=== PATIENT | female | born 1965 | race Caucasian/White ===

== ENCOUNTER 2017-08-16 07:21 | Inpatient (IN) | payer MEDICAID ==
[~2017-08-16 07:21] MED LIST: Acetaminophen 325 MG Tab PO ONE; Celecoxib 200 MG Cap PO ONE; Gabapentin 300 MG Cap PO ONE; Scopolamine 1.5 MG Transdermal Patch TRDERM PRN; cefOXitin 2 GM Vial ONE
[2017-08-16] MEDS ORDERED: Acetaminophen 500 MG Tab PO ONE (07:45)
[2017-08-16] MEDS ORDERED: Albuterol/Ipratropium 3.0-0.5 MG/3 ML Neb Soln NEB ONE (08:00)
[2017-08-16] MEDS ORDERED: Dextrose 5%-Lactated Ringers 1,000 ML IV SCH ×2 (08:00→14:45)
[2017-08-16] MEDS ORDERED: fentaNYL 250 MCG/5 ML SDV ONE ×2 (08:23→10:26)
[2017-08-16] MEDS ORDERED: Lactated Ringers 1,000 ML ONE (08:26)
[2017-08-16] MEDS ORDERED: Neostigmine Methylsulfate 1 MG/ML 5 ML Syringe ONE (08:26)
[2017-08-16] MEDS ORDERED: Propofol 200 MG/20 ML SDV ONE (08:26)
[2017-08-16] MEDS ORDERED: Rocuronium 50 MG/5 ML Vial ONE (08:26)
[2017-08-16] MEDS ORDERED: Succinylcholine 200 MG/10 ML MDV ONE (08:26)
[2017-08-16] MEDS ORDERED: Dexamethasone 4 MG/ML SDV ONE (08:26)
[2017-08-16] MEDS ORDERED: Glycopyrrolate 0.2 MG/ML 5 ML MDV ONE (08:26)
[2017-08-16] MEDS ORDERED: Ondansetron 4 MG/2 ML SDV ONE (08:26)
[2017-08-16] MEDS ORDERED: Scopolamine 1.5 MG Transdermal Patch TRDERM SCH (08:30)
[2017-08-16] MEDS ORDERED: cefOXitin 2 GM in Sodium Chloride 0.9% 50 ML IV ONE ×4 (09:00)
[2017-08-16] MEDS ORDERED: Ropivacaine 50 ML, Dexamethasone 8 MG, EPINEPHrine 0.4 MG, Sodium Chloride 0.9% 27.6 ML NERVRT ONE ×4 (09:15)
[2017-08-16] MEDS ORDERED: Midazolam 1 MG/ML 2 ML SDV ONE (09:41)
[2017-08-16] MEDS ORDERED: Naloxone 0.4 MG/ML SDV ONE (11:50)
[2017-08-16] MEDS ORDERED: Edrophonium Chloride 150 MG/15 ML MDV ONE (11:58)
[2017-08-16] MEDS ORDERED: Insulin Aspart 100 Units/ML 3 ML Pen SUBCUT ONE (12:45)
[2017-08-16] MEDS: Lidocaine 0.4%/D5W 2 GM/500 ML BAG IV SCH (13:14)
[2017-08-16] MEDS: CHECK SCOPOLAMINE PATCH DAILY TOP SCH (13:15)
[2017-08-16] MEDS: Lidocaine 2% 100 MG/5 ML Syringe IVPUSH ONE (13:18)
[2017-08-16] MEDS: Ketamine 500 MG/5 ML MDV IV ONE (13:18)
[2017-08-16] MEDS ORDERED: hydrOXYzine HCl 100 MG/2 ML SDV IM PRN (14:30)
[2017-08-16] MEDS: Albuterol/Ipratropium 3.0-0.5 MG/3 ML Neb Soln INH SCH ×2 (14:52→20:30)
[2017-08-16] MEDS ORDERED: Ondansetron 4 MG/2 ML SDV IVPUSH PRN (15:00)
[2017-08-16] MEDS ORDERED: Metoclopramide 10 MG/2 ML SDV IVPUSH PRN (15:00)
[2017-08-16] MEDS ORDERED: Albuterol/Ipratropium 3.0-0.5 MG/3 ML Neb Soln INH PRN (15:00)
[2017-08-16] MEDS ORDERED: diphenhydrAMINE 50 MG/ML SDV IVPUSH PRN (15:00)
[2017-08-16] MEDS ORDERED: Labetalol 20 MG/4 ML Syringe IVPUSH PRN (15:00)
[2017-08-16] MEDS ORDERED: Pantoprazole 40 MG Vial IVPUSH SCH (16:00)
[2017-08-16] MEDS ORDERED: MVI, Adult with Vitamin K 10 ML, Thiamine 200 MG, Chromium/Copper/Mang/Selen/Zn 1 ML in... IV SCH ×4 (16:00)
[2017-08-16] MEDS: cefOXitin 2 GM in Sodium Chloride 0.9% 50 ML IV SCH ×2 (16:13→20:31)
[2017-08-16] MEDS: Acetaminophen Soln 650 MG/20.3 ML UD Cup PO SCH ×2 (16:17→21:20)
[2017-08-16] MEDS: Insulin Aspart 100 Units/ML 3 ML Pen SUBCUT PRN ×2 (19:32→21:11)
[2017-08-16] MEDS: Heparin Sodium 5,000 Units/ML Vial SUBCUT SCH (20:30)
[2017-08-16] MEDS: Gabapentin 250 MG/5 ML Solution ML 470 ML Bottle PO SCH (20:30)
[2017-08-16] MEDS ORDERED: Insulin Detemir 100 Units/ML 3 ML Pen SUBCUT ONE (21:00)
[2017-08-17] MEDS: Lidocaine 0.4%/D5W 2 GM/500 ML BAG IV SCH (01:50)
[2017-08-17] MEDS ORDERED: Iohexol 647 MG/ML 50 ML SDV PO STA (02:58)
[2017-08-17] MEDS: cefOXitin 2 GM in Sodium Chloride 0.9% 50 ML IV SCH ×2 (04:52→09:33)
[2017-08-17] MEDS: Acetaminophen Soln 650 MG/20.3 ML UD Cup PO SCH ×4 (04:53→21:54)
[2017-08-17] MEDS: Insulin Aspart 100 Units/ML 3 ML Pen SUBCUT PRN ×3 (05:24→17:05)
[2017-08-17] MEDS ORDERED: Insulin Detemir 100 Units/ML 3 ML Pen SUBCUT ONE ×2 (07:00→20:00)
[2017-08-17] MEDS: Albuterol/Ipratropium 3.0-0.5 MG/3 ML Neb Soln INH SCH ×4 (07:18→21:56)
[2017-08-17] MEDS: Celecoxib 200 MG Cap PO SCH (07:22)
[2017-08-17] MEDS: Heparin Sodium 5,000 Units/ML Vial SUBCUT SCH ×2 (07:23→21:54)
[2017-08-17] MEDS ORDERED: Bacitracin Oint 1 GM U/D Packet TOP PRN (07:45)
--- NOTE | 2017-08-17 08:20 | CR ---
UGI wo KUB HISTORY: eval R -Y GBP FINDINGS: After administration of oral contrast, upright views were obtained. Post operative changes gastric bypass. Surgical drains in place. No evidence for leak. Contrast passes freely into proximal small bowel loops. IMPRESSION: No evidence for leak or obstruction.
[2017-08-17] MEDS: Gabapentin 250 MG/5 ML Solution ML 470 ML Bottle PO SCH ×3 (09:32→21:54)
[2017-08-17] MEDS: Lactated Ringers 1,000 ML IV SCH (09:33)
[2017-08-17] MEDS: Lisinopril 20 MG Tab PO SCH (09:52)
[2017-08-17] MEDS: CHECK SCOPOLAMINE PATCH DAILY TOP SCH (09:52)
[2017-08-17] MEDS: MVI, Adult with Vitamin K 10 ML, Thiamine 200 MG, Chromium/Copper/Mang/Selen/Zn 1 ML in... IV SCH ×4 (17:04)
[2017-08-17] MEDS: Lansoprazole 30 MG Orally Disintegrating Tab.CR PO SCH (17:04)
[2017-08-18] MEDS: Lactated Ringers 1,000 ML IV SCH (02:52)
[2017-08-18] MEDS: Acetaminophen Soln 650 MG/20.3 ML UD Cup PO SCH ×4 (04:08→21:22)
[2017-08-18] MEDS: Albuterol/Ipratropium 3.0-0.5 MG/3 ML Neb Soln INH SCH ×4 (07:05→21:19)
[2017-08-18] MEDS ORDERED: Ondansetron 4 MG Tab.DIS PO PRN (07:40)
--- NOTE | 2017-08-18 08:50 | PN ---
DATE OF SERVICE: 08/18/2017 SUBJECTIVE: Patricia is a pleasant 51-year-old female. She is postop day #2. Blood sugars 87, she received no Lantus yesterday. Oral intake was 1190. Her pain is controlled. She has been up ambulating. Vital signs stable. She did have dietary consultation yesterday. REVIEW OF SYSTEMS: Remainder of review of systems negative for any pertinent positives and negatives. OBJECTIVE: GENERAL: Patricia is a 51-year-old female. VITAL SIGNS: TPR is 97.2, 75, 16, and blood pressure 137/71. HEENT: Negative. NECK: Supple. HEART: Regular rate and rhythm. LUNGS: Clear. ABDOMEN: Dressings dry and intact. BEENA drain intact. EXTREMITIES: Without peripheral edema. ASSESSMENT: Laparoscopic gastric bypass surgery, liver biopsy, and repair of diaphragmatic hernia for morbid obesity, hepatomegaly, and diaphragmatic hernia. Date of surgery was 08/16/2017, Joel Geller MD. PLAN: 1. Saline lock IV if oral intake adequate. 2. Discontinue Lantus. 3. Dressing off. 4. May shower. 5. Three med cups per hour, record at bedside. 6. Good pulmonary toilet. 7. We will evaluate p.r.n. or in a.m. Mariposa Mendoza PA-C /[id number]
[2017-08-18] MEDS ORDERED: Cyanocobalamin (Vitamin B12) 1,000 MCG/ML SDV IM ONE (09:00)
[2017-08-18] MEDS: Celecoxib 200 MG Cap PO SCH (09:05)
[2017-08-18] MEDS: Heparin Sodium 5,000 Units/ML Vial SUBCUT SCH ×2 (09:05→21:19)
[2017-08-18] MEDS: Lisinopril 20 MG Tab PO SCH (09:06)
[2017-08-18] MEDS: CHECK SCOPOLAMINE PATCH DAILY TOP SCH (09:06)
[2017-08-18] MEDS: Gabapentin 250 MG/5 ML Solution ML 470 ML Bottle PO SCH ×3 (09:39→21:21)
[2017-08-18] MEDS: Lidocaine 2% 100 MG/5 ML Syringe IVPUSH ONE (15:11)
[2017-08-18] MEDS: Ketamine 500 MG/5 ML MDV IV ONE (15:11)
[2017-08-18] MEDS: Lansoprazole 30 MG Orally Disintegrating Tab.CR PO SCH (16:24)
[2017-08-18] MEDS: MVI, Adult with Vitamin K 10 ML, Thiamine 200 MG, Chromium/Copper/Mang/Selen/Zn 1 ML in... IV SCH ×4 (16:24)
--- NOTE | 2017-08-18 16:53 | OR ---
DATE OF PROCEDURE: 08/16/2017 PREOPERATIVE DIAGNOSIS: Morbid obesity. POSTOPERATIVE DIAGNOSES: 1. Morbid obesity. 2. Marked hepatomegaly. 3. Paraesophageal diaphragmatic hernia. OPERATIVE PROCEDURES: 1. Laparoscopic Louie-en-Y gastric bypass with long-limb gastroenterostomy (48493). 2. Neri-Cut needle liver biopsy (64985). 3. Repair of paraesophageal diaphragmatic hernia (50109). ANESTHESIA: General. BACK WEDGER: Mariposa Mendoza PA-C. INDICATION FOR PROCEDURE: This is a 51-year-old female presenting with longstanding morbid obesity with increasingly significant comorbidities. After preoperative evaluation and discussion, she wished to proceed with a gastric bypass procedure. Potential risks of the procedure including bleeding, infection, leaks from various GI tract closures, problems with bowel obstruction over time, as well as possibility of cardiopulmonary, septic, or hemorrhagic complications leading to were discussed, and the patient wishes to proceed. DETAILS OF PROCEDURE: The patient was taken to the operating room and placed in a supine position. After general endotracheal anesthesia was induced, she was converted to a lithotomy position. A bilateral subcostal transversus abdominis plane block using continuous ultrasound guidance was then placed using the usual solution. Orogastric tube was placed, and the abdomen was prepped and draped. 15 cm inferior and 5 cm left of xiphoid process, a transverse incision was made, and the peritoneal cavity was entered under direct vision with an Optiview trocar and inflated to 15 mmHg with CO2. Laparoscope was then reinserted. No underlying trocar insertion site injuries were seen. Following this, 5 additional trocars were placed across the upper and midabdomen and general exploration was undertaken. The patient was noted to have marked hepatomegaly with liver being grossly fatty infiltrated. Neri-Cut needle biopsies were obtained from the left lobe of liver. Minimal bleeding from the biopsy sites was controlled with electrocautery. The omentum was then divided in the midline up to the level of the transverse colon. This allowed identification of the small bowel to the ligament of Treitz. Small bowel was traced out 200 cm distal to that point, it was divided transversely with a DANIA stapler. Small bowel was then traced out an additional 200 cm, where the [id number] enteroenterostomy was accomplished with an internal firing of the Endo-DANIA 60-mm stapler. The common opening was then closed transversely with the same stapler, angles anastomosed and mesenteric defect approximated with some 0 Ethibond stitch along with fibrin sealant. The divided end of the Louie limb was then from the mesentery for a few centimeters, which allowed antecolic position of the Louie limb up the level of the gastroesophageal junction without tension. The liver was then retracted anteriorly. The patient was noted to have a moderate-sized paraesophageal hernia containing some perigastric fat, some of the gastric fundus along with a tongue of omentum; these were reduced, and the peritoneum overlying incised and reflected downward. An anterior repair of the diaphragmatic hernia was then accomplished with some 0 Ethibond sutures reinforced with PTFE pledgets. The gastrointestinal balloon catheter was then inflated to 15 mL and pulled up snugly against the EG junction. Gastric wall of the apex balloon was then marked with electrocautery. Balloon catheter was deflated and pulled up from the esophagus. The lesser omental tissue adjacent to the gastric cardia was then incised allowing dissection behind the stomach at that level. Pouch formation was initiated with a transverse firing of the DANIA stapler at the level of the cauterized dawson in the gastric cardia and completed with 2 additional firings of DANIA stapler up to and through the angle of His. Upon completion of the pouch, both staple lines were noted to be intact. The anvil of a 21-mm EEA stapler was then attached to [place] sump type tube, latter was brought down through the mouth and taken out through a small opening in the gastric pouch allowing the anvil likewise to be pulled down to within the gastric pouch. The divided end of the Louie limb was then opened and the main body of the EEA stapler was passed several centimeters into the lumen of the small bowel, brought up the anvil and united with it, thus creating the gastrojejunostomy. Upon removal of the stapler, double donuts of mucosa were noted within it. The small bowel was closed off with a vascular staple line. Gastrojejunostomy was reinforced with some 3-0 Vicryl seromuscular stitch along with fibrin sealant. Leak test was accomplished with injection of 120 mL of air in the gastric pouch while submerged with a cefoxitin-containing saline solution. No leaks were identified. Two Rustam-Lopez drains had been placed adjacent to the gastrojejunostomy, taken out through subcostal trocar sites with no further problems noted. Trocars were removed, and the peritoneal cavity was deflated. Incisions were closed with some 4-0 Vicryl stitch, which was also used to fix the drain. The patient was taken to the recovery room in a satisfactory condition. Physician assistant engineer, Mariposa Mendoza, played an essential role in assisting in this case, helping to position the patient, retract structures as needed, as well as suturing and cutting sutures when indicated. Her presence improved patient safety and decreased the operative time. Joel Geller MD /[id number]
--- NOTE | 2017-08-18 16:53 | PN ---
DATE OF SERVICE: 08/17/2017 The patient has been afebrile with stable vital signs. Upper GI x-ray looks good. Oral intake has been thus far satisfactory. Blood sugars are running in the 300, so we will give her some additional Lantus this morning as well as this evening. I think we will change her IV to plain LR at 100 mL now which may be helpful in that regard as well. We discussed possibly starting Januvia which she would like to try to hold off on that for now. We will see how things go with the blood sugars over the next 24-48 hours. Otherwise, go up to step 2 diet today and maximize activity and work with pulmonary toilet. Joel Geller MD /[id number]
[2017-08-19] MEDS: Acetaminophen Soln 650 MG/20.3 ML UD Cup PO SCH ×2 (03:31→09:40)
[2017-08-19] MEDS: Albuterol/Ipratropium 3.0-0.5 MG/3 ML Neb Soln INH SCH (07:17)
[2017-08-19] MEDS: Heparin Sodium 5,000 Units/ML Vial SUBCUT SCH (07:27)
[2017-08-19] MEDS: Celecoxib 200 MG Cap PO SCH (07:28)
[2017-08-19] MEDS: Lisinopril 20 MG Tab PO SCH (08:46)
[2017-08-19] MEDS: CHECK SCOPOLAMINE PATCH DAILY TOP SCH (08:47)
[2017-08-19] MEDS: Gabapentin 250 MG/5 ML Solution ML 470 ML Bottle PO SCH (09:40)
--- NOTE | 2017-08-19 13:32 | DISCH ---
ADMISSION DIAGNOSES: Morbid obesity, BMI 38.4; diabetes type 2; asthma with few flare-ups a year; allergic rhinitis; insomnia; and chronic left shoulder pain. DISCHARGE DIAGNOSES: Laparoscopic gastric bypass surgery, liver biopsy, and repair of diaphragmatic hernia for morbid obesity, hepatomegaly, and diaphragmatic hernia. Date of surgery, 08/16/2017. Surgeon, Joel Geller MD. HISTORY: Patricia Brown is a 51-year-old female with longstanding history of morbid obesity and increasing comorbidities. After preoperative evaluation and discussion of possible risks and possible complications, she wished to proceed with surgical procedure. HOSPITAL COURSE: Patricia had her surgery on 08/16/2017. She had no operative complications. On postop day #1, she had an upper GI, which was normal. Her blood sugars were monitored throughout her hospital stay. On the day prior to discharge, blood sugars were 125, 133, 172, and 194. She did not have any medication coverage for her blood sugars. Oral intake was adequate at 1650. Vital signs were stable. She had adequate pain control and adequate nutritional education. She was able to be discharged to home on 08/19/2017. PHYSICAL EXAMINATION: GENERAL: Patricia Brown is a pleasant 51-year-old female. VITAL SIGNS: Height is 5 feet 4 inches. Weight is 226, BMI is 38.4. TPR is 98.8, 80, 16, and blood pressure 143/71. HEENT: Negative. NECK: Supple. HEART: Regular rate and rhythm. LUNGS: Clear. ABDOMEN: 4x4 over BEENA drain site. Incisions look good. Abdominal binder is on. EXTREMITIES: Without peripheral edema. DISPOSITION: Discharged to home. CONDITION: Stable and improving. FOLLOWUP APPOINTMENT: With Mariposa Mendoza PA-C, on 08/26/2017 at 10 a.m. DISCHARGE MEDICATIONS: Home medications; 1. Tylenol elixir 650 mg liquid q.6 hours for 2 weeks. 2. Celebrex 200 mg daily for 14 days. 3. Baclofen 10 mg twice a day. 4. Lisinopril 20 mg daily. 5. Methyldopa 250 mg twice daily. 6. Remeron 7.5 mg oral at bedtime. 7. Simvastatin 20 mg at bedtime. 8. Ambien 5 mg at bedtime. 9. Zofran 4 mg ODT q.4 hours p.r.n. nausea. DISCHARGE DIET: Step-2 gastric bypass diet without cereal for 2 weeks. Drink 8 to 10 glasses of water a day. ACTIVITY: After discharge, no lifting greater than 10 pounds for 2 weeks[address] Driving, do not drive for 1 week. Shower/bathing, may shower. DISCHARGE INSTRUCTIONS: Notify provider of fever, increased pain, swelling, redness, drainage, nausea, or vomiting. Keep site clean and dry. Wear abdominal binder for 2 weeks and then as tolerated. Special instruction; use incentive spirometer 10 times every hour while awake for 1 week. Check blood sugars in the morning before eating and at bedtime, and bring results to clinic appointment.
== END 2017-08-19 11:40 | disposition home or self-care (01) | DRG 621 ==
LOC: JP.SDS 07:21 → JP.MS 07:21 → EDSTATUS 07:30 → JP.2SS 11:40
PROVIDERS: ADMIT Surgery; ATTEND Surgery
PROC: 0D164ZA Bypass Stomach to Jejunum, Percutaneous Endoscopic Approach (ICD-10-PCS; principal; 2017-08-16)
PROC: 0FB24ZX Excision of Left Lobe Liver, Percutaneous Endoscopic Approach, Diagnostic (ICD-10-PCS; 2017-08-16)
PROC: 3E0T3BZ Introduction of Anesthetic Agent into Peripheral Nerves and Plexi, Percutaneous Approach (ICD-10-PCS; 2017-08-16)
DX: E66.01 Morbid (severe) obesity due to excess calories (principal); Z68.38 Body mass index [BMI] 38.0-38.9, adult; R16.0 Hepatomegaly, not elsewhere classified; K44.9 Diaphragmatic hernia without obstruction or gangrene; I10 Essential (primary) hypertension; E78.5 Hyperlipidemia, unspecified; E11.9 Type 2 diabetes mellitus without complications; Z79.4 Long term (current) use of insulin; J45.909 Unspecified asthma, uncomplicated; G47.00 Insomnia, unspecified; K21.9 Gastro-esophageal reflux disease without esophagitis; M25.512 Pain in left shoulder; G89.29 Other chronic pain; Z88.8 Allergy status to other drugs, medicaments and biological substances
CPT/HCPCS: 36415; 74240; 74240-26; 80053; 82962; 83036; 83735; 83880; 84100; 85027; 86850; 86900; 86901; 88307; 88313; 94640; A9270-GY; C9113; J0171; J0330; J0694; J1100; J1644; J2001; J2250; J2310; J2405; J2704; J2710; J2795; J3010; J3410; J3411; J3420; J7030; J7042; J7050; J7120; J7620; Q9967